=== PATIENT | male | born 1945 | race African-American/Black ===

== ENCOUNTER 2016-10-09 08:46 | Emergency (ER) | payer BC ==
[2016-10-09] MEDS ORDERED: ASPIRIN 81 MG CHEWABLE TABLETS PO ONE (08:53)
--- NOTE | 2016-10-09 08:53 | PDOC ---
History of Present Illness <Jeffery Mcelroy - Last Filed: 10/09/16 10:23> - General History Source: Patient, EMS, Old Records Exam Limitations: No Limitations - History of Present Illness Initial Comments: 10/09/16 10:40 The patient is a 70 year old male with past medical history of hypertension, CAD , ischemic cardiomyopathy (s/p CABG), paroxysmal afib (on Eliquis), s/p ICD last Thursday, chronic systolic CHF, hx of non sustained ventricular tachycardia , ESRD (on hemodialysis TTS), who presents to the ED with complaints of chest pain that began while at dialysis this morning. The patient states that since its onset, the patient has been experiencing constant chest pain which spans across his whole chest and is accompanied by intermittent palpitations in which he characterizes them as irregular beats. Upon arrival to dialysis center, EMS noted several episodes of nonsustained wide complex tachycardia. The patient denies any recent illness, fevers, or chills. He denies shortness of breath. He denies any nausea, vomiting, diarrhea. He denies any urinary symptoms. PCP: Oscar Sullivan Card: Jerrell Kramer <Roxi Hi - Last Filed: 10/09/16 10:52> - General Stated Complaint: CHEST PAIN Time Seen by Provider: 10/09/16 08:52 Past History - Past Medical History Anemia: No Asthma: No Cancer: No Cardiac Disorders: Yes ([place]) CVA: No COPD: No CHF: No Dementia: No Diabetes: Yes Dialysis: Yes (,,) GI Disorders: No Disorders: No HTN: Yes Hypercholesterolemia: Yes Liver Disease: No Seizures: No Thyroid Disease: No - Surgical History Abdominal Surgery: No Appendectomy: No Cardiac Surgery: Yes (STENT) Cholecystectomy: No Lung Surgery: No Neurologic Surgery: No Orthopedic Surgery: No - Immunization History Immunization Up to Date: No - Psycho/Social/Smoking Cessation Hx Anxiety: No Suicidal Ideation: No Smoking History: Unknown if ever smoked Have you smoked in the past 12 months: No Hx Alcohol Use: No Drug/Substance Use Hx: No Substance Use Type: None Hx Substance Use Treatment: No <Jeffery Mcelroy - Last Filed: 10/09/16 10:23> <Roxi Hi - Last Filed: 10/09/16 10:52> - Past Medical History Allergies/Adverse Reactions: Allergies Allergy/AdvReac Type Severity Reaction Status Date / Time No Known Drug Allergies Allergy Verified 04/05/15 16:45 Home Medications: Ambulatory Orders Amlodipine Besylate [Norvasc -] 5 mg PO DAILY 03/21/13 Aspirin 81 mg PO DAILY 03/21/13 Insulin (Levemir) [Levemir Flexpen -] 40 units SQ BID 06/13/14 Isosorbide Mononitrate [Imdur] 60 mg PO DAILY 06/13/14 Metoprolol Succinate [Toprol XL -] 25 mg PO BID 06/13/14 Atorvastatin Ca [Lipitor] 40 mg PO HS #30 tablet 06/16/14 Cholecalciferol (Vitamin D3) [Vitamin D3 -] 1,000 unit PO DAILY 09/16/16 Furosemide [Lasix -] 80 mg PO BID 09/16/16 Magnesium Oxide [Mag-Ox -] 400 mg PO DAILY 09/16/16 Review of Systems - Review of Systems Able to Perform ROS?: Yes Comments:: 10/09/16 10:40 CONSTITUTIONAL: Absent: fever, chills, diaphoresis, generalized weakness, malaise, loss of appetite HEENT: Absent: rhinorrhea, nasal congestion, throat pain, throat swelling, difficulty swallowing, mouth swelling, ear pain, eye pain, visual Changes CARDIOVASCULAR: Present: chest pain, palpitations Absent: syncope, lightheadedness, peripheral edema RESPIRATORY: Absent: cough, shortness of breath, dyspnea with exertion, orthopnea, wheezing, stridor, hemoptysis GASTROINTESTINAL: Absent: abdominal pain, abdominal distension, nausea, vomiting, diarrhea, constipation, melena, hematochezia GENITOURINARY: Absent: dysuria, frequency, urgency, hesitancy, hematuria, flank pain, genital pain MUSCULOSKELETAL: Absent: myalgia, arthralgia, joint swelling SKIN: Absent: rash, itching, pallor HEMATOLOGIC/IMMUNOLOGIC: Absent: easy bleeding, easy bruising, lymphadenopathy, frequent infections ENDOCRINE: Absent: unexplained weight gain, unexplained weight loss, heat intolerance, cold intolerance NEUROLOGIC: Absent: headache, focal weakness or paresthesias, dizziness, unsteady gait, seizure, mental status changes, bladder or bowel incontinence PSYCHIATRIC: Absent: anxiety, depression, suicidal or homicidal ideation, hallucinations. All Other Systems: Reviewed and Negative <Roxi Hi - Last Filed: 10/09/16 10:52> *Physical Exam - Vital Signs Last Vital Signs Temp Pulse Resp BP Pulse Ox 98.8 F 101 H 18 140/116 100 10/09/16 08:55 10/09/16 08:55 10/09/16 08:55 10/09/16 08:55 10/09/16 08:55 - Physical Exam Comments: 10/09/16 10:41 GENERAL: Well developed, well nourished. Awake and alert. No acute distress. HEENT: Normocephalic, atraumatic. PERRLA, EOMI. No conjunctival pallor. Sclera are non- icteric. Moist mucous membranes. Oropharynx is clear. NECK: Supple. Full ROM. No JVD. Carotid pulses 2+ and symmetric, without bruits. No thyromegaly. No lymphadenopathy. CARDIOVASCULAR: Irregularly irregular and tachycardic. No murmurs, rubs, or gallops. Distal pulses are 2+ and symmetric. PULMONARY: No evidence of respiratory distress. Lungs clear to auscultation bilaterally. No wheezing, rales or rhonchi. ABDOMINAL: Soft. Non-tender. Non-distended. No rebound or guarding. No organomegaly. Normoactive bowel sounds. MUSCULOSKELETAL Normal range of motion at all joints. No bony deformities or tenderness. No CVA tenderness. EXTREMITIES: No cyanosis. No clubbing. No edema. No calf tenderness. SKIN: Warm and dry. Normal capillary refill. No rashes. No jaundice. NEUROLOGICAL: Alert, awake, appropriate. Cranial nerves 2-12 intact. No deficits to light touch and temperature in face, upper extremities and lower extremities. No motor deficits in the in face, upper extremities and lower extremities. Normoreflexic in the upper and lower extremities. Normal speech. Toes are down-going bilaterally. PSYCHIATRIC: Cooperative. Good eye contact. Appropriate mood and affect. <Roxi Hi - Last Filed: 10/09/16 10:52> ED Treatment Course - LABORATORY CBC & Chemistry Diagram: 10/09/16 09:13 10/09/16 10:12 <Jeffery Mcelroy - Last Filed: 10/09/16 10:23> - LABORATORY CBC & Chemistry Diagram: 10/09/16 10:12 10/09/16 10:12 - ADDITIONAL ORDERS Additional order review: 10/09/16 10/09/16 10:12 09:13 RBC 2.90 L Cancelled MCV 93.7 Cancelled MCHC 34.0 Cancelled RDW 15.5 Cancelled MPV 9.5 Cancelled Neutrophils % 75.7 Cancelled Lymphocytes % 15.7 Cancelled Monocytes % 5.8 Cancelled Eosinophils % 1.9 Cancelled Basophils % 0.9 Cancelled - RADIOLOGY Radiograph Interpretation: 10/09/16 10:46 Chest X-ray as reviewed by reports large heart. Previous OHS. Double lead pacemaker. <Roxi Hi - Last Filed: 10/09/16 10:52> Medical Decision Making - Critical Care Time Total Critical Care Time (minutes): 55 Critical Care Statement: The care of this patient involved high complexity decision making to prevent further life threatening deterioration of the patient 's condition and/or to evalute & treat vital organ system(s) failure or risk of failure. - Medical Decision Making 10/09/16 08:55 The patient is hemodynamically stable, and in no acute distress He is currently having chest pain On the monitor, he has a wide-complex tachycardia, that appears regular, and appears nonsustained Differential includes atrial fibrillation with aberrant conduction versus nonsustained ventricular tachycardia Will obtain stat EKG 10/09/16 09:03 EKG noted: I suspect nonsustained ventricular tachycardia Ventricular rate approximately 100 Right axis deviation Nurses are obtaining IV access He got 2 baby aspirin in the field Will administer another 2 baby aspirin Will administer 150 mg of IV amiodarone over 20 minutes Paging cardiology stat 10/09/16 09:12 IV access has been obtained 150 mg of IV amiodarone is hanging Cardiology is at the bedside and agrees with the plan of care 10/09/16 09:28 Pt accepted to [facility] (Dr. Chapin accepting) 10/09/16 09:30 Chest x-ray emergency Department interpretation: Cardiomegaly Some slight increase in his interstitial markings since last chest x-ray Nurses were unable to obtain labs I am attempting now He remains hemodynamically stable 150 mg bolus of amiodarone has almost completely infused 10/09/16 09:45 I obtained labs via right femoral vein cannulation, on first attempt I held 5 minutes of pressure afterwards Posterior tibial and dorsal pedal pulses were intact both before and after the procedure I have already initiated code red, stat EMS transfer Awaiting EMS arrival 10/09/16 09:50 EMSs arrived Amiodarone drip is hanging Looking at the monitor, it is difficult to tell whether or not he is in atrial fibrillation or having nonsustained V. tach in couplets, triplets, and quartets He is stable for transfer Clinical impression: Chest pain Suspected nonsustained ventricular tachycardia 10/09/16 10:23 The patient is departing with EMS He is hemodynamically stable He is complaining of "very mild" chest pressure Will administer 2 mg of morphine IV <Jeffery Mcelroy - Last Filed: 10/09/16 10:23> - Medical Decision Making 10/09/16 09:30 Call placed to [facility] transfer center at . Transfer was set up and patient was transferred to CCU. <Roxi Hi - Last Filed: 10/09/16 10:52> *DC/Admit/Observation/Transfer - Discharge Dispostion Admit: No - Transfer to Acute Care Facility Receiving Facility: [facility] Accepting Physician:: Dari <Jeffery Mcelroy - Last Filed: 10/09/16 10:23> - Attestations Scribe Attestion: 10/09/16 10:43 Documentation prepared by Roxi Hi, acting as medical biller coder for Jeffery Mcelroy MD/DO. <Roxi Hi - Last Filed: 10/09/16 10:52> Diagnosis at time of Disposition: V tach, Chest pain - Discharge Dispostion Disposition: TRANSFER ACUTE CARE/OTHER HOSP - Referrals Referrals: Oscar Sullivan MD [Primary Care Provider] -
[2016-10-09] MEDS ORDERED: ASPIRIN 81 MG CHEWABLE TABLETS ONE (08:57)
[2016-10-09] MEDS ORDERED: AMIODARONE HCL 150 MG/3 ML VIAL IVPUSH ONE (09:04)
[2016-10-09] MEDS ORDERED: AMIODARONE HCL INJECTION 150 MG in DEXTROSE 5%-WATER - 97 ML IVPB ONE (09:04)
[2016-10-09] MEDS ORDERED: AMIODARONE HCL 150 MG/3 ML VIAL ONE ×2 (09:08→09:49)
[2016-10-09] MEDS ORDERED: AMIODARONE HCL INJECTION 450 MG in DEXTROSE 5%-WATER - 241 ML IVPB SCH (09:15)
[2016-10-09 09:35] VITALS: BMI 34.9
--- NOTE | 2016-10-09 09:38 | PN ---
Progress Note (short form) - Note Progress Note: Cardiology Consult Dictated 70M w ESRD, ICM, ICD, PAF on Eliquis, recent admission for VT thought to be due to bradycardia s/p ICD upgrade to include atrial lead and adjustment of lower rate limit now presents to ER from HD w/ chest pain, palps, nausea and found to be having either AF w/ aberrancy with pauses and intermittent pacing vs. NSVT and intermittent pacing. Hemodynamically stable. REC: Amio 150mg IV x1 Stat Labs to assess electrolytes. Have contacted EP and interventional cardiology for transfer to [facility] CCU for further EP evaluation and likely cath- patient had stress test several months ago with moderate magno-infarct ischemia, refused cath at that time. Plan d/w patient and daughters. They agree for tx. Discussed w/ ER MD Dr. Mcelroy.
[2016-10-09] MEDS ORDERED: morphine CARPU-JECT 4 MG/1 ML DISP.SYRIN IVPUSH ONE (10:21)
[2016-10-09] MEDS ORDERED: morphine CARPU-JECT 2 MG/1 ML DISP.SYRIN ONE (10:22)
[2016-10-09 10:31] LABS: BASOPHIL 0.9 % (0-2.0); EOSINOPHIL 1.9 % (0-4.5); MCH 31.8 pg (25.7-33.7); MEAN CELL VOLUME 93.7 fl (80-96); MEAN PLT VOLUME 9.5 fl (7.5-11.1); NEUTROPHILS 75.7 % (42.8-82.8); PLATELET COUNT 86 K/MM3 (134-434); RDW 15.5 % (11.9-15.9); WHITE BLOOD COUNT 6.3 K/mm3 (4.0-10.0)
--- NOTE | 2016-10-09 10:46 | CONS ---
DATE OF CONSULTATION: 10/09/2016 REQUESTING PHYSICIAN: Jeffery Mcelroy MD CHIEF COMPLAINT: Cardiac arrhythmia. HISTORY: A 70-year-old male with paroxysmal atrial fibrillation on Eliquis, ischemic cardiomyopathy status post CABG, ICD, end-stage renal disease on dialysis, recent admission here for VT with multiple shocks felt to be due to bradycardia recently transferred to [facility] where he was evaluated by electrophysiology who added an atrial lead and increased the lower rate limit on his device with resolution of VT. The patient now presents to the emergency room from dialysis with palpitations, chest discomfort, and nausea. In the ER, he was found to be in a cardiac arrhythmia, which may be atrial fibrillation with aberrant conduction, pauses, and intermittent ventricular pacing versus short salvos of ventricular tachycardia with pauses and V pacing. He is hemodynamically stable and chest pain free at this time with no nausea. I have discussed with Dr. Mcelroy and with EP at [facility] treatment with amiodarone 150 mg IV x1 dose now. PAST MEDICAL HISTORY: As above. ALLERGIES: He has no known drug allergies. HOME MEDICATIONS: Include: 1. Toprol XL 25 b.i.d. 2. Magnesium 400 mg daily. 3. Imdur 60 mg daily, which was held on dialysis days. 4. Levemir 40 units b.i.d. 5. Lasix 80 mg daily. 6. Vitamin D3. 7. Lipitor 40 nightly, 8. Norvasc 5 mg daily, which was being held on dialysis days. 9. Aspirin 81 mg daily. FAMILY HISTORY: Noncontributory. SOCIAL HISTORY: The patient is a nonsmoker. PHYSICAL EXAMINATION: General: He is alert and oriented. Speaking in full sentences. He denies chest pain. Vital Signs: His blood pressure is in the 70s, irregular, blood pressure cycled at the bedside was 115/70, O2 saturation 98% on 2 L nasal cannula. Neck: He has no JVD. Heart: Irregular with no new murmurs. Chest: Clear bilaterally with no wheezing, rales, or rhonchi. Abdomen: Obese but soft and nontender. No rebound or guarding. Extremities: Warm with no edema. EKGs and rhythm strips were reviewed. It is difficult to differentiate whether he is having atrial fibrillation with aberrant conduction pauses with intermittent ventricular pacing versus short salvos of nonsustained ventricular tachycardia followed by V pacing. The strips were photographed and sent to EP for further analysis. IMPRESSION: A 70-year-old male with ischemic cardiomyopathy status post implantable cardioverter-defibrillator, history of coronary artery disease, end-stage renal disease on dialysis, paroxysmal atrial fibrillation on Eliquis, recent admission for recurrent ventricular tachycardia with multiple implantable cardioverter-defibrillator shocks thought to be due to bradycardia with implantable cardioverter-defibrillator upgrade and adjustment of lower rate limit now presents again with palpitations and found to be the above rhythm. PLAN: 1. Amiodarone 150 mg IV x1 dose now. 2. Plan for transfer to CCU at [facility] for further EP evaluation and possible cardiac catheterization. It should be noted that the patient had an abnormal stress test several months ago showing infarct with moderate magno-infarct ischemia at which time a cardiac catheterization was recommended but he refused. After the most recent admission, the ventricular tachycardia was thought to be due to bradycardia and secondary to the way his device had been set. VT had resolved after adjustment of the device with the addition of an atrial lead and adjustment of a lower rate limit. Cardiac catheterization was deferred at that time. The patient saw me in the office last week, and they reported that he had been hypotensive at dialysis at which time Norvasc and Imdur were instructed to be held on dialysis days. Since he had some chest discomfort during dialysis, cardiac catheterization was again discussed, and the patient was supposed to have an outpatient cardiac catheterization in the upcoming weeks. Given current arrhythmia, transfer to CCU is appropriate with evaluation by EP and by Interventional Cardiology. The patient and daughters agree with plan. Plan discussed with ER attending, Dr. Mcelroy. The patient has been accepted for transfer to [facility]. Dr. Jeffery Chapin is the accepting physician. Thank you for the consultation. LAUREN AN M.D. [id number]
[2016-10-09 10:52] LABS: INR 1.36 (0.82-1.09); PROTHROMBIN TIME (PATIENT) 15.1 SEC (9.98-11.88)
[2016-10-09 10:55] LABS: MAGNESIUM 1.9 mg/dL (1.8-2.4)
[2016-10-09 10:56] LABS: ALBUMIN 3.9 g/dl (3.4-5.0); CALCIUM 8.5 mg/dL (8.5-10.1); MAGNESIUM 1.9 mg/dL (1.8-2.4)
[2016-10-09 11:13] LABS: BILIRUBIN,TOTAL 0.5 mg/dL (0.2-1.0)
[2016-10-09 11:21] LABS: CREATININE 9.5 mg/dL (0.7-1.3); TROPONIN I 1.49 ng/ml (0.00-0.05)
[2016-10-09 11:22] VITALS: TEMP 98.1
[2016-10-09 11:23] VITALS: BP 113/61; PULSE 98
--- NOTE | 2016-10-09 12:25 | EKG ---
Test Reason : Blood Pressure : / mmHG Vent. Rate : 106 BPM Atrial Rate : 000 BPM P-R Int : 000 ms QRS Dur : 122 ms QT Int : 514 ms P-R-T Axes : 000 045 162 degrees QTc Int : 682 ms ATRIAL FIBRILLATION WITH RAPID VENTRICULAR RESPONSE WITH OCCASIONAL ventricular-paced complexes AND WITH PREMATURE VENTRICULAR OR ABERRANTLY CONDUCTED COMPLEXES POSSIBLE INFERIOR INFARCT , AGE UNDETERMINED ABNORMAL ECG WHEN COMPARED WITH ECG OF 19-SEP-2016 02:29, ELECTRONIC VENTRICULAR PACEMAKER HAS REPLACED SINUS RHYTHM Confirmed by DEMETRIUS GRANADOS MD ([id number]) on 10/09/2016 12:24:40 PM Referred By: Confirmed By:DEMETRIUS GRANADOS MD
[2016-10-09 12:41] LABS: TROPONIN I 1.51 ng/ml (0.00-0.05)
== END 2016-10-09 10:25 | disposition short-term general hospital (02) ==
LOC: JER 08:46
PROC: 3E033RZ Introduction of Antiarrhythmic into Peripheral Vein, Percutaneous Approach (ICD-10-PCS; principal; 2016-10-09)
PROC: 3E033NZ Introduction of Analgesics, Hypnotics, Sedatives into Peripheral Vein, Percutaneous Approach (ICD-10-PCS; 2016-10-09)
DX: I47.2 Ventricular tachycardia (principal); R07.89 Other chest pain; I48.0 Paroxysmal atrial fibrillation; Z79.01 Long term (current) use of anticoagulants; I25.10 Atherosclerotic heart disease of native coronary artery without angina pectoris; I13.2 Hypertensive heart and chronic kidney disease with heart failure and with stage 5 chronic kidney disease, or end stage renal disease; N18.6 End stage renal disease; I50.22 Chronic systolic (congestive) heart failure; Z99.2 Dependence on renal dialysis; Z95.1 Presence of aortocoronary bypass graft
CPT/HCPCS: 36415; 71010-TC; 80053; 82550; 82553; 83735; 84484; 85025; 85610; 93005; 93010; 99285-25

== ENCOUNTER 2016-11-04 10:14 | Observation (INO) | payer BC ==
[2016-11-04 10:38] VITALS: BMI 33.0
--- NOTE | 2016-11-04 11:53 | PDOC ---
History of Present Illness - General Chief Complaint: Chest Pain Stated Complaint: CHEST PAIN Time Seen by Provider: 11/04/16 10:17 History Source: Patient Exam Limitations: No Limitations - History of Present Illness Initial Comments: 11/04/16 11:55 70-year-old male with history of end-stage renal disease, CAD, pacemaker, diabetes and recent stent placement presents with chest tightness that began after completing dialysis. Patient does state intermittent shortness of breath over the past week without aggravating factors. Patient also states his amiodarone was decreased from 400 mg at 200 mg on the fifth by Dr. Kramer. Patient denies worsening lower extremity edema, abdominal pain, palpitations, dizziness, nausea, fever or chills. Presenting Symptoms: Chest Pain, Short of Breath Timing/Duration: reports: resolved prior to arrival Severity/Quality: reports: moderate, pressure Location: reports: substernal Chest Pain Radiation: reports: no radiation Activities at Onset: reports: exertion Prior Chest Pain/Cardiac Workup: reports: Cardiac Cath (with stent), Stress Test Nitro Today/Relief: Yes: no nitro taken today Aspirin Received prior to arrival (Core Measure): Yes: no aspirin today Associated Symptoms: Yes: Chest Pain/pressure, Shortness of Breath Past History - Past Medical History Allergies/Adverse Reactions: Allergies Allergy/AdvReac Type Severity Reaction Status Date / Time No Known Drug Allergies Allergy Verified 11/04/16 10:29 Home Medications: Ambulatory Orders Amiodarone HCl [Cordarone -] 200 mg PO DAILY 11/04/16 Amlodipine Besylate [Norvasc -] 5 mg PO DAILY 11/04/16 Atorvastatin Ca [Lipitor] 40 mg PO HS 11/04/16 Clopidogrel Bisulfate [Plavix -] 75 mg PO DAILY 11/04/16 Furosemide [Lasix -] 40 mg PO BID 11/04/16 Insulin (Levemir) [Levemir Flexpen -] 50 units SQ BID 11/04/16 Isosorbide Mononitrate [Imdur -] 60 mg PO DAILY 11/04/16 Losartan 50Mg/Hctz 12.5MG [Hyzaar -] 1 tab PO DAILY 11/04/16 Metoprolol Succinate [Toprol Xl] 75 mg PO DAILY 11/04/16 Pantoprazole Sodium [Protonix -] 40 mg PO DAILY 11/04/16 Anemia: No Asthma: No Cancer: No Cardiac Disorders: Yes ([place]) CVA: No COPD: No CHF: No Dementia: No Diabetes: Yes Dialysis: Yes (,,[place]) GI Disorders: No Disorders: No HTN: Yes Hypercholesterolemia: Yes Liver Disease: No Seizures: No Thyroid Disease: No - Surgical History Abdominal Surgery: No Appendectomy: No Cardiac Surgery: Yes (STENT) Cholecystectomy: No Lung Surgery: No Neurologic Surgery: No Orthopedic Surgery: No - Immunization History Immunization Up to Date: No - Psycho/Social/Smoking Cessation Hx Anxiety: No Suicidal Ideation: No Smoking History: Unknown if ever smoked Have you smoked in the past 12 months: No Information on smoking cessation initiated: No Hx Alcohol Use: No Drug/Substance Use Hx: No Substance Use Type: None Hx Substance Use Treatment: No Patient Lives Alone: No Lives with/in: spouse/SO Cardiac Specific PMH - Complaint Specific PMHX Pacemaker: Yes Review of Systems - Review of Systems Able to Perform ROS?: Yes Constitutional: No: Symptoms Reported HEENTM: No: Symptoms Reported Respiratory: Yes: Shortness of Breath. No: Cough Cardiac (ROS): Yes: Chest Pain. No: Lightheadedness, Palpitations, Syncope ABD/GI: No: Symptoms Reported : No: Symptoms Reported Musculoskeletal: No: Symptoms Reported Integumentary: No: Symptoms Reported Neurological: No: Symptoms reported Hematologic/Lymphatic: No: Symptoms Reported *Physical Exam - Vital Signs Last Vital Signs Temp Pulse Resp BP Pulse Ox 98.0 F 67 20 141/67 100 11/04/16 10:31 11/04/16 10:31 11/04/16 10:31 11/04/16 10:11/04/16 10:35 - Physical Exam General Appearance: Yes: Nourished, Appropriately Dressed. No: Apparent Distress HEENT: positive: EOMI, FLACA, TMs Normal, Pharynx Normal, Pale Conjunctivae ( mild) Neck: positive: Supple Respiratory/Chest: positive: Lungs Clear, Normal Breath Sounds. negative: Respiratory Distress, Accessory Muscle Use Cardiovascular: positive: Regular Rhythm, Regular Rate. negative: Murmur Gastrointestinal/Abdominal: positive: Soft. negative: Tenderness Musculoskeletal: negative: CVA Tenderness Extremity: positive: Normal Capillary Refill, Pedal Edema (1+) Integumentary: positive: Normal Color, Dry, Warm Neurologic: positive: Normal Mood/Affect Heart Score/ECG Review - ECG Intrepretation Rhythm: Regular Rhythm (atrial paced at 79 with prolonged AV conduction and dual paced complexes.) ED Treatment Course - LABORATORY CBC & Chemistry Diagram: 11/04/16 12:20 11/04/16 13:00 - ADDITIONAL ORDERS Additional order review: Laboratory Results 11/04/16 11/04/16 11/04/16 13:00 13:00 11:05 INR 1.80 H D Sodium 141 Potassium 3.2 L Chloride 98 Carbon Dioxide 33 H D Anion Gap 10 BUN 21 H D Creatinine 5.9 H D Creat Clearance w eGFR 9.50 Random Glucose 96 D Calcium 8.9 Magnesium 2.0 Total Bilirubin 0.7 D AST 22 D ALT 12 D Alkaline Phosphatase 65 Creatine Kinase 308 D Troponin I 0.14 H D B-Natriuretic Peptide 33196.81 H Total Protein 7.3 Albumin 3.8 Blood Type B NEGATIVE Antibody Screen Negative 11/04/16 12:20 RBC 2.89 L MCV 93.2 MCHC 33.3 RDW 15.6 MPV 8.8 Neutrophils % 69.7 Lymphocytes % 17.6 Monocytes % 8.4 Eosinophils % 3.5 D Basophils % 0.8 - RADIOLOGY Radiology Studies Ordered: Category Date Time Status CHEST X-RAY PORTABLE* [RAD] Stat Radiology 11/04/16 11:06 Completed Medical Decision Making - Medical Decision Making 11/04/16 11:57 Patient with extensive cardiac history and recent stent placement approximately 10 weeks ago and decrease in his amiodarone last week. Patient presents with resolved chest pain that occurred while in dialysis but resolved while in route to the ER. Patient also complains of intermittent shortness of breath for the past week without aggravating factors. Patient denies orthopnea. Patient concerning for acute coronary syndrome versus electrolyte imbalance versus anemia versus pneumonia. Patient ordered for cardiac workup. patient is currently asymptomatic.. 11/04/16 13:20 . Patient remains symptomatic. blood collected by me performing an arterial stick to his left radial artery. Case discussed with Dr. Majano who accepted patient to telemetry inpatient. Awaiting callback from Dr. Kramer. 11/04/16 13:44 chest x-ray negative. Chemistry pending 11/04/16 13:56 Laboratory Tests 11/04/16 13:00 Sodium 141 Potassium 3.2 L Chloride 98 Carbon Dioxide 33 H D BUN 21 H D Creatinine 5.9 H D Magnesium 2.0 AST 22 D ALT 12 D Alkaline Phosphatase Pending Creatine Kinase Pending Troponin I Pending B-Natriuretic Peptide Pending 11/04/16 14:11 Laboratory Tests 06/13/14 10/09/16 10/09/16 12:50 10:12 10:12 Troponin I 1.49 H* D 1.51 H* B-Natriuretic Peptide 36735.77 H 11/04/16 13:00 Troponin I 0.14 H D B-Natriuretic Peptide 06499.81 H 11/04/16 15:[address] Kramer who feels patient would benefit from telemetry observation and will consult shortly on patient. Patient remained asymptomatic with normal vital signs here *DC/Admit/Observation/Transfer Diagnosis at time of Disposition: Chest pain Qualifiers: Chest pain type: unspecified Qualified Code(s): R07.9 - Chest pain, unspecified - Discharge Dispostion Admit: Yes Decision to Admit order Date/Time: Decision to Admit Order Category Date Time Status Decision to Admit to Hospital Routine Admission 11/04/16 13:22 Active
[2016-11-04 12:31] LABS: BASOPHIL 0.8 % (0-2.0); EOSINOPHIL 3.5 % (0-4.5); MCHC 33.3 g/dl (32.0-35.9); MEAN CELL VOLUME 93.2 fl (80-96); MEAN PLT VOLUME 8.8 fl (7.5-11.1); NEUTROPHILS 69.7 % (42.8-82.8); PLATELET COUNT 114 K/MM3 (134-434); RDW 15.6 % (11.9-15.9); WHITE BLOOD COUNT 5.1 K/mm3 (4.0-10.0)
[2016-11-04 13:38] LABS: ALBUMIN 3.8 g/dl (3.4-5.0); BILIRUBIN,TOTAL 0.7 mg/dL (0.2-1.0); CALCIUM 8.9 mg/dL (8.5-10.1); CREATININE 5.9 mg/dL (0.7-1.3); TOT PROT 7.3 g/dl (6.4-8.2)
[2016-11-04 13:54] LABS: TROPONIN I 0.14 ng/ml (0.00-0.05)
[2016-11-04 14:00] LABS: INR 1.8 (0.82-1.09)
--- NOTE | 2016-11-04 15:16 | EKG ---
Test Reason : Blood Pressure : / mmHG Vent. Rate : 079 BPM Atrial Rate : 077 BPM P-R Int : 268 ms QRS Dur : 130 ms QT Int : 450 ms P-R-T Axes : 098 050 180 degrees QTc Int : 516 ms AV SEQUENTIAL OR DUAL CHAMBER ELECTRONIC PACEMAKER T WAVE ABNORMALITY, CONSIDER INFERIOR ISCHEMIA T WAVE ABNORMALITY, CONSIDER ANTEROLATERAL ISCHEMIA ABNORMAL ECG WHEN COMPARED WITH ECG OF 09-OCT-2016 08:57, VENT. RATE HAS DECREASED BY 27 BPM CLINICAL CORRELATION IS RECOMMENDED Confirmed by CEE ROOT MD ([id number]) on 11/04/2016 3:15:47 PM Referred By: Confirmed By:CEE ROOT MD
--- NOTE | 2016-11-04 17:15 | PN ---
Progress Note (short form) - Note Progress Note: Cardiology Consult Dictated 1.Ischemic CM s/p CABG, recent CAROLYNN [place] LAD and SVG to LAD -totally occluded SVG to LCX; totally occluded [place] RCA 2. Recent ICD upgrade to dual chamber device 3. PAF 4. History of bradycardia induced VT 5. ESRD on HD Admitted due to episode atypical CP on HD. He states he has been having chest pain at HD "every time" for the last 3 weeks. REC: His pain appears to be atypical, but may be anginal triggered by fluid shifts and swings in BP during HD (he has extensive [place] CAD and total occlusion of RCA and SVG to LCx). -Would observe on tele overnight -Cycle cardiac enzymes -Attempt to slow rate of HD if possible, avoid hypotension. -Continue home meds
[2016-11-04 19:13] LABS: TROPONIN I 0.14 ng/ml (0.00-0.05)
--- NOTE | 2016-11-04 20:12 | CONS ---
DATE OF CONSULTATION: 11/04/2016 REASON FOR CONSULTATION: The consultation is requested by Dr. Majano for chest pain. HISTORY: The patient is a 70-year-old male, well-known to our service from previous admissions and from office follow up. His past medical history includes coronary disease, status post CABG; ischemic cardiomyopathy, status post ICD; recent admission here with chest pain, non-STEMI, transferred to [facility] where he underwent coronary catheterization and drug-eluding stents to his [place] LAD as well as his SVG to LAD. Patient has chronic [place] CAD as well as a totally occluded SVG to left circumflex and a totally occluded [place] right coronary artery. He also recently underwent ICD upgrade to a dual-chamber device after he sustained bradycardia-induced ventricular tachycardia. He has paroxysmal atrial fibrillation and is on Eliquis. He also has end-stage renal disease on hemodialysis and a remote history of CVA. The patient was on dialysis today and began experiencing substernal chest pressure. He described it as across his chest, "in the bones." Denied shortness of breath above baseline. Denied palpations. Denied PND. Denied orthopnea. Patient states he has been having chest pain on dialysis for the last 4 weeks, states it did not get better after the recent intervention. PAST MEDICAL HISTORY: As above. ALLERGIES: No known drug allergies. HOME MEDICATIONS: 1. Amiodarone taper, which ended on November 01. 2. Eliquis 5 mg b.i.d. 3. Aspirin 81 mg daily. 4. Lipitor 80 mg at bedtime. 5. Plavix 75 mg daily. 6. Enalapril 2.5 mg daily. 7. Toprol XL 75 mg daily. FAMILY HISTORY: Noncontributory. SOCIAL HISTORY: Patient denies active tobacco use. Denies illicit drugs. PHYSICAL EXAMINATION: Vital signs: Afebrile, temperature 98.0 Fahrenheit, pulse 90. EKG showed dual-chamber pacing with underlying atrial fibrillation. Blood pressure 132/72. O2 saturations are 98% on 2 liters. Heart: S1, S2 regular. No murmurs. Chest: Clear. Abdomen: Soft, nontender. Extremities: No edema. IMAGING: Chest x-ray showed no infiltrates or effusions. LABORATORY: White count 5.1, hematocrit 27, platelets of 114, potassium 3.2, creatinine 5.9, CK 308, troponin 0.14, BNP 42,346. ASSESSMENT: A 70-year-old male with coronary disease, status post coronary artery disease; ischemic cardiomyopathy, status post implantable converter defibrillator with recent upgrade; paroxysmal atrial fibrillation; recent non-STEMI with drug-eluding stents to the [place] LAD and SVG to LAD; chronic totally occluded RCA and saphenous vein graft to left circumflex, who now presents with atypical chest pain at hemodialysis. Patient's description of the pain is atypical; however, given his extensive coronary disease, he may be having some form of angina due to fluid shift and blood pressure shift at hemodialysis. PLAN: 1. Monitoring on telemetry overnight for serial cardiac enzymes. 2. Echocardiogram to rule out pericardial effusion after the recent pacemaker intervention. 3. Attempt to dialyze again while hospitalized. We will try to remove fluid slowly to avoid fluid shifts. He may benefit from the addition of isosorbide mononitrate if blood pressure allows. Holley [id number]
[2016-11-04] MEDS: APIXABAN 5 MG TABLET PO SCH (21:48)
[2016-11-04] MEDS: ATORVASTATIN CA 80 MG TABLET (FP) PO SCH (21:48)
[2016-11-04] MEDS: INSULIN DETEMIR 100 UNITS/ML MDV SQ SCH (21:48)
[2016-11-05 01:15] LABS: TROPONIN I 0.13 ng/ml (0.00-0.05)
[2016-11-05 07:50] LABS: EOSINOPHIL 3.4 % (0-4.5); MCH 31.7 pg (25.7-33.7); MCHC 34.2 g/dl (32.0-35.9); MEAN CELL VOLUME 92.8 fl (80-96); MEAN PLT VOLUME 8.9 fl (7.5-11.1); NEUTROPHILS 73.1 % (42.8-82.8); PLATELET COUNT 108 K/MM3 (134-434); RDW 15.3 % (11.9-15.9)
[2016-11-05 08:36] LABS: ALBUMIN 3.4 g/dl (3.4-5.0); CALCIUM 8.7 mg/dL (8.5-10.1)
[2016-11-05 08:43] LABS: BILIRUBIN,TOTAL 0.6 mg/dL (0.2-1.0); TOT PROT 6.4 g/dl (6.4-8.2)
[2016-11-05 08:55] LABS: CREATININE 7.9 mg/dL (0.7-1.3)
--- NOTE | 2016-11-05 09:08 | PN ---
Progress Note, Physician Chief Complaint: no chest pain Having echo TnI trend is flat TELE: paced, no sig. V arrhythmias History of Present Illness: drop in H/H noted BP controlled - Current Medication List Current Medications: Active Medications Apixaban (Eliquis -) 5 mg PO BID [facility] Last Admin: 11/04/16 21:48 Dose: 5 mg Aspirin (Asa -) 81 mg PO DAILY [facility] Atorvastatin Calcium (Lipitor -) 80 mg PO HS [facility] Last Admin: 11/04/16 21:48 Dose: 80 mg Clopidogrel Bisulfate (Plavix -) 75 mg PO DAILY [facility] Enalapril Maleate (Vasotec -) 2.5 mg PO DAILY [facility] Insulin Detemir (Levemir Vial) 50 units SQ BID [facility] Last Admin: 11/04/16 21:48 Dose: 50 units Metoprolol Succinate 50 mg/ (Metoprolol Succinate 25 mg) 75 mg PO DAILY [facility] - Objective Vital Signs: Vital Signs Temperature 98.9 F 11/05/16 06:00 Pulse Rate 70 11/05/16 06:00 Respiratory Rate 20 11/05/16 06:00 Blood Pressure 133/76 11/05/16 06:00 O2 Sat by Pulse Oximetry (%) 96 11/04/16 21:00 Constitutional: Yes: No Distress Cardiovascular: Yes: Regular Rate and Rhythm Respiratory: Yes: CTA Bilaterally Gastrointestinal: Yes: Soft (non-tender) Edema: No Neurological: Yes: Alert Labs: CBC, BMP 11/05/16 05:45 11/05/16 08:20 INR, PTT INR 1.80 (0.82-1.09) H D 11/04/16 13:00 - ....Imaging EKG: Image Reviewed Assessment/Plan IMP: 1.Ischemic CM s/p CABG, recent CAROLYNN [place] LAD and SVG to LAD -totally occluded SVG to LCX; totally occluded [place] RCA 2. Recent ICD upgrade to dual chamber device 3. PAF 4. History of bradycardia induced VT 5. ESRD on HD 6. Anemia Admitted due to episode atypical CP on HD Cardiac enzymes remain flat. No arrhythmias REC: 1. Follow H/H 2. F/u repeat echo today, r/o pericardial disease 3. Would attempt to dialyze on tele to r/o arrhythmias during HD Avoid hypotension during HD as hypotensive episodes could precipitate angina with his extent of underlying CAD.
[2016-11-05] MEDS ORDERED: METOPROLOL SUCCINATE 50 MG TAB.SR.24H (FP) ONE (09:39)
[2016-11-05] MEDS ORDERED: METOPROLOL SUCCINATE 25 MG TAB.SR.24H (FP) ONE (09:40)
[2016-11-05] MEDS ORDERED: METOPROLOL SUCCINATE 50 MG TAB.SR.24H (FP) PO SCH (10:00)
[2016-11-05] MEDS ORDERED: METOPROLOL SUCCINATE 25 MG TAB.SR.24H (FP) PO SCH (10:00)
[2016-11-05] MEDS: ENALAPRIL MALEATE 2.5 MG TABLET (FP) PO SCH (10:06)
[2016-11-05] MEDS: METOPROLOL SUCCINATE 50 MG, METOPROLOL SUCCINATE 25 MG PO SCH (10:06)
[2016-11-05] MEDS: INSULIN DETEMIR 100 UNITS/ML MDV SQ SCH ×2 (10:07→21:52)
[2016-11-05] MEDS: CLOPIDOGREL BISULFATE 75 MG TABLET (FP) PO SCH (11:46)
[2016-11-05] MEDS: APIXABAN 5 MG TABLET PO SCH ×2 (11:46→21:52)
[2016-11-05] MEDS: ASPIRIN 81 MG CHEWABLE TABLETS PO SCH (11:46)
--- NOTE | 2016-11-05 12:20 | HP ---
Admitting History and Physical - Admission Chief Complaint: Chest pain History of Present Illness: Pt is a 70 y/o male w/ mutiple medical problems including CAD(S/P CABG), paroxysmal afib, HTN, HLD, ischemic cardiomyopathy, diabetes, ESRD(on HD TIW), anemia and sleep apnea. Pt was having dialysis and developed chest pain w/ an intensity of 8/10, nonradiating and not asscoiated with SOB or palpitations. Pt has noticed these same episodes of chest pain during dialysis for at least the past 3-4 weeks. - Past Medical History Cardiovascular: Yes: CAD, CHF, Other (non sustained Ventricular Tachycardia Ischemic cardiomyopathy) Pulmonary: Yes: Sleep Apnea Renal/: Yes: Renal Failure Heme/Onc: Yes: Anemia Endocrine: Yes: Diabetes Mellitus - Past Surgical History Past Surgical History: Yes: AICD, CABG - Smoking History Smoking history: Unknown if ever smoked Have you smoked in the past 12 months: No - Alcohol/Substance Use Hx Alcohol Use: No - Social History ADL: Independent History of Recent Travel: No Home Medications - Allergies Allergies/Adverse Reactions: Allergies Allergy/AdvReac Type Severity Reaction Status Date / Time No Known Drug Allergies Allergy Verified 11/04/16 10:29 - Home Medications Home Medications: Ambulatory Orders Amiodarone HCl [Cordarone -] 200 mg PO DAILY 11/04/16 Amlodipine Besylate [Norvasc -] 5 mg PO DAILY 11/04/16 Atorvastatin Ca [Lipitor] 40 mg PO HS 11/04/16 Clopidogrel Bisulfate [Plavix -] 75 mg PO DAILY 11/04/16 Furosemide [Lasix -] 40 mg PO BID 11/04/16 Insulin (Levemir) [Levemir Flexpen -] 50 units SQ BID 11/04/16 Isosorbide Mononitrate [Imdur -] 60 mg PO DAILY 11/04/16 Losartan 50Mg/Hctz 12.5MG [Hyzaar -] 1 tab PO DAILY 11/04/16 Metoprolol Succinate [Toprol Xl] 75 mg PO DAILY 11/04/16 Pantoprazole Sodium [Protonix -] 40 mg PO DAILY 11/04/16 Family Disease History - Family Disease History Family History: Unremarkable Family Disease History: Diabetes: Brother (pancreatic ), Heart Disease: Sister ( from heart failure ), CA: Father (possible unsure what type ), Brother Review of Systems - Review of Systems Constitutional: reports: Malaise Eyes: reports: No Symptoms HENT: reports: No Symptoms Neck: reports: No Symptoms Cardiovascular: reports: Chest Pain Respiratory: reports: No Symptoms Gastrointestinal: reports: No Symptoms Physical Examination Vital Signs: Vital Signs Temperature 98.9 F 11/05/16 06:00 Pulse Rate 70 11/05/16 06:00 Respiratory Rate 20 11/05/16 06:00 Blood Pressure 133/76 11/05/16 06:00 O2 Sat by Pulse Oximetry (%) 96 11/04/16 21:00 Constitutional: Yes: Well Nourished Neck: Yes: Supple Cardiovascular: Yes: WNL, Regular Rate and Rhythm, Murmur Respiratory: Yes: WNL, Regular, CTA Bilaterally Gastrointestinal: Yes: WNL, Normal Bowel Sounds, Soft, Abdomen, Obese Extremities: Yes: Other ((+) AVG RUE) Edema: No Neurological: Yes: WNL, Alert, Oriented, Other (Nonfocal) Labs: CBC, BMP 11/05/16 05:45 11/05/16 08:20 Problem List - Problems (1) Chest pain Assessment/Plan: Admitted to tele Serial cpk/troponin to r/o ACS Cardio consult ?Due to volume shifts during dialysis Pt has a h/o CAD Cont asa/plavix Code(s): R07.9 - CHEST PAIN, UNSPECIFIED Qualifiers: Chest pain type: unspecified Qualified Code(s): R07.9 - Chest pain, unspecified (2) Anemia in ESRD (end-stage renal disease) Assessment/Plan: Monitor H/H Code(s): N18.6 - END STAGE RENAL DISEASE D63.1 - ANEMIA IN CHRONIC KIDNEY DISEASE (3) CKD (chronic kidney disease) stage V requiring chronic dialysis Assessment/Plan: HD as per renal Code(s): N18.6 - END STAGE RENAL DISEASE Z99.2 - DEPENDENCE ON RENAL DIALYSIS (4) CHF (congestive heart failure) Code(s): I50.9 - HEART FAILURE, UNSPECIFIED Assessment/Plan 1.HTN BP stable Cont metoprolol/vasotec/asa 2.PAfib Cont eliquis 3.HLD Cont lipitor 4.Diabetes Cont levemir and sliding scale w/ coverage
--- NOTE | 2016-11-05 17:18 | CONSULT ---
Consult - text type - Consultation Consultation Note: Renal Consult for ESRD on HD This is a 70 year old Gentleman with PMhx of ESRD no HD (TTS), CAD s/p CABG who presents with chest pain with dialysis that has been worsening over the last several weeks. PMhx: as above AllergiesL NKDA Family Hx: NC Social Hx: No T/A/D ROS: No HOLLAND, confuison, lethargy, chest pain, sob, abd pain, N/V/D. All other pertinent ros negative Home Meds: Home Medications Medication Instructions Recorded Amiodarone HCl [Cordarone -] 200 mg PO DAILY 11/04/16 Amlodipine Besylate [Norvasc -] 5 mg PO DAILY 11/04/16 Atorvastatin Ca [Lipitor] 40 mg PO HS 11/04/16 Clopidogrel Bisulfate [Plavix -] 75 mg PO DAILY 11/04/16 Furosemide [Lasix -] 40 mg PO BID 11/04/16 Insulin (Levemir) [Levemir Flexpen 50 units SQ BID 11/04/16 -] Isosorbide Mononitrate [Imdur -] 60 mg PO DAILY 11/04/16 Losartan 50Mg/Hctz 12.5MG [Hyzaar 1 tab PO DAILY 11/04/16 -] Metoprolol Succinate [Toprol Xl] 75 mg PO DAILY 11/04/16 Pantoprazole Sodium [Protonix -] 40 mg PO DAILY 11/04/16 Vital Signs Temperature 98.8 F 11/06/16 09:55 Pulse Rate 71 11/06/16 10:30 Respiratory Rate 18 11/06/16 10:30 Blood Pressure 172/85 11/06/16 10:30 O2 Sat by Pulse Oximetry (%) 100 11/06/16 05:00 Gen: NAD, awake and alert HEENT: NC/AT, MMM, No JVD CVS: RRR, No M/R lungss: CTA Abd: soft NT/ND Ext: No edema, clubbing or cyanosis Neuro: AAOX3, no focal defects Laboratory Tests 11/05/16 11/05/16 05:45 08:20 WBC 5.0 RBC 2.46 L Hgb 7.8 L D Hct 22.8 L D MCV 92.8 MCHC 34.2 RDW 15.3 Plt Count 108 L Sodium 140 Potassium 3.6 Chloride 100 Carbon Dioxide 32 Anion Gap 8 BUN 31 H D Creatinine 7.9 H* D Creat Clearance w eGFR 6.78 Random Glucose 118 H D Calcium 8.7 Apixaban (Eliquis -) 5 mg PO BID [facility] Last Admin: 11/05/16 21:52 Dose: 5 mg Aspirin (Asa -) 81 mg PO DAILY [facility] Last Admin: 11/05/16 11:46 Dose: 81 mg Atorvastatin Calcium (Lipitor -) 80 mg PO HS [facility] Last Admin: 11/05/16 21:52 Dose: 80 mg Clopidogrel Bisulfate (Plavix -) 75 mg PO DAILY [facility] Last Admin: 11/05/16 11:46 Dose: 75 mg Enalapril Maleate (Vasotec -) 2.5 mg PO DAILY [facility] Last Admin: 11/05/16 10:06 Dose: 2.5 mg Insulin Detemir (Levemir Vial) 50 units SQ BID [facility] Last Admin: 11/05/16 21:52 Dose: 50 units Metoprolol Succinate 50 mg/ (Metoprolol Succinate 25 mg) 75 mg PO DAILY [facility] Last Admin: 11/05/16 10:06 Dose: 75 mg A/p 70 year old Gentleman with PMhx of ESRD no HD (TTS), CAD s/p CABG who presents with chest pain with dialysis that has been worsening over the last several weeks. ESRD on HD chest pain Acute on chronic anemia Hypertension Plan: For HD tomorrow with Tele UF as tolerated Pt with anemia but does not want blood transfusion S/p Long acting MACKENZIE given at dialysis yesterday Will give IV iron with HD Minimize blood draws off dialysis Check iron studies and stool occult blood Cardiology follow up Dario Jensen DO
[2016-11-05] MEDS: ATORVASTATIN CA 80 MG TABLET (FP) PO SCH (21:52)
[2016-11-06] MEDS ORDERED: IRON SUCROSE INJECTION 100 MG in SODIUM CHLORIDE 95 ML IVPB ONE (09:00)
[2016-11-06] MEDS: ENALAPRIL MALEATE 2.5 MG TABLET (FP) PO SCH ×2 (10:00→14:46)
[2016-11-06] MEDS: CLOPIDOGREL BISULFATE 75 MG TABLET (FP) PO SCH ×2 (10:00→14:44)
[2016-11-06] MEDS: APIXABAN 5 MG TABLET PO SCH ×3 (10:00→21:49)
[2016-11-06] MEDS: ASPIRIN 81 MG CHEWABLE TABLETS PO SCH ×2 (10:00→14:43)
[2016-11-06] MEDS: INSULIN DETEMIR 100 UNITS/ML MDV SQ SCH ×2 (10:00→21:49)
[2016-11-06] MEDS: METOPROLOL SUCCINATE 50 MG, METOPROLOL SUCCINATE 25 MG PO SCH ×2 (10:00→14:45)
[2016-11-06] MEDS ORDERED: METOPROLOL SUCCINATE 25 MG TAB.SR.24H (FP) ONE (10:15)
[2016-11-06] MEDS ORDERED: METOPROLOL SUCCINATE 50 MG TAB.SR.24H (FP) ONE (10:15)
[2016-11-06] MEDS ORDERED: PT OWN MED DRAWER 7, Y5N ONE (10:16)
[2016-11-06 10:40] LABS: MCH 31.2 pg (25.7-33.7); MCHC 33.5 g/dl (32.0-35.9); MEAN CELL VOLUME 92.9 fl (80-96); MEAN PLT VOLUME 8.6 fl (7.5-11.1); PLATELET COUNT 124 K/MM3 (134-434); RDW 15.4 % (11.9-15.9); WHITE BLOOD COUNT 5.5 K/mm3 (4.0-10.0)
--- NOTE | 2016-11-06 10:44 | PN ---
Progress Note, Physician History of Present Illness: seen and examined today in [facility]. states he is feeling better today. no overnight events. no new complaints. - Current Medication List Current Medications: Active Medications Apixaban (Eliquis -) 5 mg PO BID [facility] Last Admin: 11/05/16 21:52 Dose: 5 mg Aspirin (Asa -) 81 mg PO DAILY [facility] Last Admin: 11/05/16 11:46 Dose: 81 mg Atorvastatin Calcium (Lipitor -) 80 mg PO HS [facility] Last Admin: 11/05/16 21:52 Dose: 80 mg Clopidogrel Bisulfate (Plavix -) 75 mg PO DAILY [facility] Last Admin: 11/05/16 11:46 Dose: 75 mg Enalapril Maleate (Vasotec -) 2.5 mg PO DAILY [facility] Last Admin: 11/05/16 10:06 Dose: 2.5 mg Insulin Detemir (Levemir Vial) 50 units SQ BID [facility] Last Admin: 11/05/16 21:52 Dose: 50 units Metoprolol Succinate 50 mg/ (Metoprolol Succinate 25 mg) 75 mg PO DAILY [facility] Last Admin: 11/05/16 10:06 Dose: 75 mg - Objective Vital Signs: Vital Signs Temperature 98.8 F 11/06/16 09:55 Pulse Rate 71 11/06/16 10:30 Respiratory Rate 18 11/06/16 10:30 Blood Pressure 172/85 11/06/16 10:30 O2 Sat by Pulse Oximetry (%) 100 11/06/16 05:00 Constitutional: Yes: No Distress, Calm, Obese Eyes: Yes: WNL, Conjunctiva Clear, EOM Intact, PERRL HENT: Yes: WNL, Atraumatic, Normocephalic Neck: Yes: WNL, Supple, Trachea Midline Cardiovascular: Yes: Regular Rate and Rhythm, S1, S2. No: Bradycardia, Tachycardia, Pulse Irregular, Bruit, JVD, Gallop, Murmur, Rub, S3, S4, Varicosities Respiratory: Yes: Regular, Diminished, Rales. No: Rhonchi, Wheezes Gastrointestinal: Yes: WNL, Normal Bowel Sounds, Soft. No: Distention, Tenderness Musculoskeletal: Yes: WNL Extremities: Yes: WNL Edema: Yes Edema: LLE: Trace, RLE: Trace Peripheral Pulses WNL: Yes Peripheral Pulses: Left Doralis Pedis: 2+, Right Dorsalis Pedis: 2+ Integumentary: Yes: WNL Neurological: Yes: Alert, Oriented Psychiatric: Yes: Alert, Oriented Labs: CBC, BMP 11/06/16 10:00 INR, PTT INR 1.80 (0.82-1.09) H D 11/04/16 13:00 - ....Imaging Chest X-ray: Report Reviewed, Image Reviewed EKG: Report Reviewed, Image Reviewed Other: Report Reviewed, Image Reviewed (tele reviewed-no sig arrhythmias) Assessment/Plan IMP: 1.Ischemic CM s/p CABG, recent CAROLYNN [place] LAD and SVG to LAD -totally occluded SVG to LCX; totally occluded [place] RCA 2. Recent ICD upgrade to dual chamber device 3. PAF 4. History of bradycardia induced VT 5. ESRD on HD 6. Anemia Admitted with chest pain during HD REC: 1. monitor H/H and transfuse as needed 2.echo reviewed no pericardial effusion, moderately reduced LV function, severe MR/TR 3. cont tele for now attempt to Avoid hypotension during HD as hypotensive episodes could precipitate angina with his extent of underlying CAD. Cardiac enzymes wnl No sig arrhythmias on tele
--- NOTE | 2016-11-06 10:47 | PN ---
Progress Note (short form) - Note Progress Note: Renal Follow up for ESRD on HD Pt seen and examined during dialysis BP 147/89, AVF with good flow pt denies any chest pain presently UF goal is 2L Vital Signs Temperature 98.8 F 11/06/16 09:55 Pulse Rate 71 11/06/16 10:30 Respiratory Rate 18 11/06/16 10:30 Blood Pressure 172/85 11/06/16 10:30 O2 Sat by Pulse Oximetry (%) 100 11/06/16 05:00 Intake & Output 11/03/16 11/04/16 11/05/16 11/06/16 23:59 23:59 23:59 23:59 Intake Total 660 640 130 Output Total 100 200 Balance 660 540 -70 Weight 250 lb Gen: NAD, awake and alert HEENT: NC/AT, MMM, No JVD CVS: RRR, No M/R lungss: CTA Abd: soft NT/ND Ext: No edema, clubbing or cyanosis Neuro: AAOX3, no focal defects CBC, BMP 11/06/16 10:00 Current Medications Apixaban (Eliquis -) 5 mg PO BID [facility] Last Admin: 11/05/16 21:52 Dose: 5 mg Aspirin (Asa -) 81 mg PO DAILY [facility] Last Admin: 11/05/16 11:46 Dose: 81 mg Atorvastatin Calcium (Lipitor -) 80 mg PO HS [facility] Last Admin: 11/05/16 21:52 Dose: 80 mg Clopidogrel Bisulfate (Plavix -) 75 mg PO DAILY [facility] Last Admin: 11/05/16 11:46 Dose: 75 mg Enalapril Maleate (Vasotec -) 2.5 mg PO DAILY [facility] Last Admin: 11/05/16 10:06 Dose: 2.5 mg Insulin Detemir (Levemir Vial) 50 units SQ BID [facility] Last Admin: 11/05/16 21:52 Dose: 50 units Metoprolol Succinate 50 mg/ (Metoprolol Succinate 25 mg) 75 mg PO DAILY [facility] Last Admin: 11/05/16 10:06 Dose: 75 mg A/p 70 year old Gentleman with PMhx of ESRD no HD (TTS), CAD s/p CABG who presents with chest pain with dialysis that has been worsening over the last several weeks. #ESRD on HD PT tolerating dialysis well today AVF functioning well Goal Uf is 2L pt denies any chest pain #Chest pain/r/o ACS Cardiac enzymes negative on Tele No chest pain during dialysis so far today #Anemia Pt is Jehov[employer] witness and does not want blood tranfusion will give IV iron with HD s/p long acting MACKENZIE in outpatient dialysis on Thursday Thank you Dario Jensen DO
[2016-11-06 11:06] LABS: ALBUMIN 3.2 g/dl (3.4-5.0); BILIRUBIN,TOTAL 0.6 mg/dL (0.2-1.0); CALCIUM 8.3 mg/dL (8.5-10.1); TOT PROT 6.4 g/dl (6.4-8.2)
[2016-11-06] MEDS: ATORVASTATIN CA 80 MG TABLET (FP) PO SCH (21:49)
--- NOTE | 2016-11-06 23:12 | PN ---
Progress Note, Physician - Current Medication List Current Medications: Active Medications Apixaban (Eliquis -) 5 mg PO BID [facility] Last Admin: 11/06/16 21:49 Dose: 5 mg Aspirin (Asa -) 81 mg PO DAILY [facility] Last Admin: 11/06/16 14:43 Dose: 81 mg Atorvastatin Calcium (Lipitor -) 80 mg PO HS [facility] Last Admin: 11/06/16 21:49 Dose: 80 mg Clopidogrel Bisulfate (Plavix -) 75 mg PO DAILY [facility] Last Admin: 11/06/16 14:44 Dose: 75 mg Enalapril Maleate (Vasotec -) 2.5 mg PO DAILY [facility] Last Admin: 11/06/16 14:46 Dose: 2.5 mg Insulin Detemir (Levemir Vial) 50 units SQ BID [facility] Last Admin: 11/06/16 21:49 Dose: 50 units Metoprolol Succinate 50 mg/ (Metoprolol Succinate 25 mg) 75 mg PO DAILY [facility] Last Admin: 11/06/16 14:45 Dose: 75 mg - Objective Vital Signs: Vital Signs Temperature 98.8 F 11/06/16 09:55 Pulse Rate 72 11/06/16 17:10 Respiratory Rate 18 11/06/16 17:10 Blood Pressure 115/64 11/06/16 17:10 O2 Sat by Pulse Oximetry (%) 100 11/06/16 09:00 Labs: CBC, BMP 11/06/16 10:00 11/06/16 10:00 INR, PTT INR 1.80 (0.82-1.09) H D 11/04/16 13:00 Problem List - Problems (1) Chest pain Code(s): R07.9 - CHEST PAIN, UNSPECIFIED Qualifiers: Chest pain type: unspecified Qualified Code(s): R07.9 - Chest pain, unspecified (2) Anemia in ESRD (end-stage renal disease) Code(s): N18.6 - END STAGE RENAL DISEASE D63.1 - ANEMIA IN CHRONIC KIDNEY DISEASE (3) CKD (chronic kidney disease) stage V requiring chronic dialysis Code(s): N18.6 - END STAGE RENAL DISEASE Z99.2 - DEPENDENCE ON RENAL DIALYSIS (4) CHF (congestive heart failure) Code(s): I50.9 - HEART FAILURE, UNSPECIFIED
[2016-11-07] MEDS ORDERED: METOPROLOL SUCCINATE 50 MG TAB.SR.24H (FP) ONE (09:08)
[2016-11-07] MEDS ORDERED: METOPROLOL SUCCINATE 25 MG TAB.SR.24H (FP) ONE (09:08)
[2016-11-07] MEDS: ENALAPRIL MALEATE 2.5 MG TABLET (FP) PO SCH (09:37)
[2016-11-07] MEDS: INSULIN DETEMIR 100 UNITS/ML MDV SQ SCH (09:38)
[2016-11-07] MEDS: CLOPIDOGREL BISULFATE 75 MG TABLET (FP) PO SCH (09:38)
[2016-11-07] MEDS: ASPIRIN 81 MG CHEWABLE TABLETS PO SCH (09:38)
[2016-11-07] MEDS: METOPROLOL SUCCINATE 50 MG, METOPROLOL SUCCINATE 25 MG PO SCH (09:38)
[2016-11-07] MEDS: APIXABAN 5 MG TABLET PO SCH (09:38)
--- NOTE | 2016-11-07 09:59 | PN ---
Progress Note, Physician History of Present Illness: seen and examined today in [facility]. no overnight events. no new complaints. - Current Medication List Current Medications: Active Medications Apixaban (Eliquis -) 5 mg PO BID [facility] Last Admin: 11/07/16 09:38 Dose: 5 mg Aspirin (Asa -) 81 mg PO DAILY [facility] Last Admin: 11/07/16 09:38 Dose: 81 mg Atorvastatin Calcium (Lipitor -) 80 mg PO HS [facility] Last Admin: 11/06/16 21:49 Dose: 80 mg Clopidogrel Bisulfate (Plavix -) 75 mg PO DAILY [facility] Last Admin: 11/07/16 09:38 Dose: 75 mg Enalapril Maleate (Vasotec -) 2.5 mg PO DAILY [facility] Last Admin: 11/07/16 09:37 Dose: 2.5 mg Insulin Detemir (Levemir Vial) 50 units SQ BID [facility] Last Admin: 11/07/16 09:38 Dose: 50 units Metoprolol Succinate 50 mg/ (Metoprolol Succinate 25 mg) 75 mg PO DAILY [facility] Last Admin: 11/07/16 09:38 Dose: 75 mg - Objective Vital Signs: Vital Signs Temperature 98.8 F 11/07/16 06:00 Pulse Rate 70 11/07/16 06:00 Respiratory Rate 20 11/07/16 06:00 Blood Pressure 126/70 11/07/16 06:00 O2 Sat by Pulse Oximetry (%) 97 11/07/16 06:00 Constitutional: Yes: No Distress, Calm, Obese Eyes: Yes: WNL, Conjunctiva Clear, EOM Intact HENT: Yes: WNL, Atraumatic, Normocephalic Neck: Yes: WNL, Supple, Trachea Midline Cardiovascular: Yes: Regular Rate and Rhythm, Murmur, S1, S2. No: Bradycardia, Tachycardia, Pulse Irregular, Bruit, JVD, Gallop, Rub, S3, S4, Varicosities Respiratory: Yes: Regular, Diminished. No: Rales, Rhonchi, Wheezes Gastrointestinal: Yes: WNL, Normal Bowel Sounds, Soft. No: Distention, Tenderness Musculoskeletal: Yes: WNL Extremities: Yes: WNL Edema: No Peripheral Pulses WNL: Yes Peripheral Pulses: Left Doralis Pedis: 2+, Right Dorsalis Pedis: 2+ Integumentary: Yes: WNL Neurological: Yes: Alert, Oriented Psychiatric: Yes: Alert, Oriented Labs: CBC, BMP 11/06/16 10:00 11/06/16 10:00 INR, PTT INR 1.80 (0.82-1.09) H D 11/04/16 13:00 - ....Imaging Chest X-ray: Report Reviewed, Image Reviewed EKG: Report Reviewed, Image Reviewed Other: Report Reviewed, Image Reviewed (tele-AV paced, pvcs) Problem List - Problems (1) Chest pain Code(s): R07.9 - CHEST PAIN, UNSPECIFIED Qualifiers: Chest pain type: unspecified Qualified Code(s): R07.9 - Chest pain, unspecified (2) Anemia in ESRD (end-stage renal disease) Code(s): N18.6 - END STAGE RENAL DISEASE D63.1 - ANEMIA IN CHRONIC KIDNEY DISEASE (3) Atrial fibrillation with slow ventricular response Code(s): I48.91 - UNSPECIFIED ATRIAL FIBRILLATION (4) CHF (congestive heart failure) Code(s): I50.9 - HEART FAILURE, UNSPECIFIED (5) End stage renal disease Code(s): N18.6 - END STAGE RENAL DISEASE (6) PVC (premature ventricular contraction) Code(s): I49.3 - VENTRICULAR PREMATURE DEPOLARIZATION (7) V tach Code(s): I47.2 - VENTRICULAR TACHYCARDIA Assessment/Plan IMP: 1.Ischemic CM s/p CABG, recent CAROLYNN [place] LAD and SVG to LAD -totally occluded SVG to LCX; totally occluded [place] RCA 2. Recent ICD upgrade to dual chamber device 3. PAF 4. History of bradycardia induced VT 5. ESRD on HD 6. Anemia Admitted with chest pain during HD REC: monitor H/H and transfuse as needed echo reviewed no pericardial effusion, moderately reduced LV function, severe MR /TR attempt to Avoid hypotension during HD as hypotensive episodes could precipitate angina with his extent of underlying CAD. Cardiac enzymes wnl No sig arrhythmias on tele, ok to dc tele Ok from a cardiac standpoint for discharge home with close outpatient follow up Cont current medical regimen including asa, plavix, eliquis
[2016-11-07 13:46] VITALS: BP 117/62; PULSE 81; TEMP 98.4
[2016-11-07 14:19] LABS: HEP B SURFACE AB Reactive (.)
--- NOTE | 2016-11-07 16:03 | PN ---
Progress Note (short form) - Note Progress Note: Renal Follow up for ESRD on HD Pt seen and examined at the bedside no acute complaints no chest pain during dialysis feels well Vital Signs Temperature 98.4 F 11/07/16 10:00 Pulse Rate 81 11/07/16 10:00 Respiratory Rate 22 11/07/16 10:00 Blood Pressure 117/62 11/07/16 10:00 O2 Sat by Pulse Oximetry (%) 97 11/07/16 09:00 Intake & Output 11/04/16 11/05/16 11/06/16 11/07/16 23:59 23:59 23:59 23:59 Intake Total 660 640 780 240 Output Total 100 200 250 Balance 660 540 580 -10 Weight 250 lb Gen: NAD, awake and alert HEENT: NC/AT, MMM, No JVD CVS: RRR, No M/R lungss: CTA Abd: soft NT/ND Ext: No edema, clubbing or cyanosis Neuro: AAOX3, no focal defects CBC, BMP 11/06/16 10:00 11/06/16 10:00 A/p 70 year old Gentleman with PMhx of ESRD no HD (TTS), CAD s/p CABG who presents with chest pain with dialysis that has been worsening over the last several weeks. #ESRD on HD s/p dialysis yesterday w/o chest pain no indication for dialysis today next dialysis tomorrow as outpatient #Chest pain/r/o ACS Cardiac enzymes negative on Tele No chest pain during dialysis #Anemia Pt is Jehovah witness and does not want blood tranfusion Venofer loading with dialysis [facility] as per outpatient dialysis unit Thank you Dario Jensen DO
== END 2016-11-07 15:22 | disposition home health service (06) ==
LOC: JER 10:14 → UNDOADMOB 13:22 → JERBED 13:22 → INTOOBSV 13:28 → JERBED 13:28 → UNDOADMOB 13:28 → J4W 17:00 → JERBED 17:00 → J4W 20:09 → JERBED 20:09
PROVIDERS: ADMIT Internal Medicine; ATTEND Internal Medicine
DX: R07.9 Chest pain, unspecified (principal); D63.1 Anemia in chronic kidney disease; I25.10 Atherosclerotic heart disease of native coronary artery without angina pectoris; E11.9 Type 2 diabetes mellitus without complications; G47.39 Other sleep apnea; I48.0 Paroxysmal atrial fibrillation; I25.5 Ischemic cardiomyopathy; E78.5 Hyperlipidemia, unspecified; I47.2 Ventricular tachycardia; I13.2 Hypertensive heart and chronic kidney disease with heart failure and with stage 5 chronic kidney disease, or end stage renal disease; N18.6 End stage renal disease; I50.9 Heart failure, unspecified; Z99.2 Dependence on renal dialysis; Z95.1 Presence of aortocoronary bypass graft
CPT/HCPCS: 36415; 71010-TC; 80053; 82550; 82553; 83735; 83880; 84100; 84484; 85025; 85027; 85610; 86704; 86706; 86708; 86850; 86900; 86901; 87340; 93005; 93010; 93306-TC; 99284-25; G0378; J1756

== ENCOUNTER 2017-02-26 11:31 | Emergency (ER) | payer BC ==
--- NOTE | 2017-02-26 11:39 | PDOC ---
Attending Attestation - Resident Resident Name: ArmentaIvan - ED Attending Attestation I have performed the following: I have examined & evaluated the patient, The case was reviewed & discussed with the resident, I agree w/resident's findings & plan, Exceptions are as noted - HPI HPI: 02/26/17 11:38 The patient is a 71-year-old male, with a significant past medical history of end-stage renal disease (AVF in RUE, HD TTS), on Eliquis and Plavix, who presents with bleeding from his AVF that began during dialysis. EMS documented normotension and applied direct pressure. 02/26/17 11:39 02/26/17 11:40 02/26/17 11:55 - Physicial Exam PE: 02/26/17 11:39 Vitals noted RUE AFF with bruit and thrill, no bleeding when pressure dressing removed 02/26/17 11:51 02/26/17 11:55 - Medical Decision Making 02/26/17 11:51 No active bleeding Will obtain labs Will notify vascular Will observe 02/26/17 12:00 Case discussed between resident and vascular surgery Recommendation is observation, discharge, holding of Eliquis for 24 hours 02/26/17 12:50 There has been no further bleeding, even without direct pressure Labs continue to be pending 02/26/17 13:59 Labs noted There has been no further bleeding He would like to go home They understand the need for close monitoring, and to immediately return if bleeding reoccurs Clinical impression: Bleeding from AV fistula site; resolved I discussed the physical exam findings, ancillary test results and final diagnoses with the patient. I answered all of the patient's questions. The patient was satisfied with the care received and felt comfortable with the discharge plan and treatment plan. The patient will call their primary care physician within 24 hours to arrange follow-up and will return to the Emergency Department with any new, persistent or worsening symptoms. Discharge Disposition - Discharge Dispostion Last Admission D/C Date: 09/19/16 - Diagnosis Bleeding from dialysis shunt - Discharge Dispostion Disposition: HOME Condition at time of disposition: Improved - Referrals Referrals: Oscar Sullivan MD [Primary Care Provider] - - Patient Instructions Printed Discharge Instructions: DI for Arteriovenous Fistula for Dialysis Additional Instructions: If bleeding occurs again, applied direct pressure immediately Do not take your Eliquis tomorrow, then resume it as usual. Return to the emergency department immediately with ANY new, persistent or worsening symptoms. You MUST call and follow up with your doctor tomorrow. Please make sure your doctor reviews the results of your emergency department evaluation.
--- NOTE | 2017-02-26 11:40 | PDOC ---
History of Present Illness - General History Source: Patient Exam Limitations: No Limitations <Ivan Armenta - Last Filed: 02/26/17 12:10> - General History Source: Patient Exam Limitations: No Limitations - History of Present Illness Initial Comments: 02/26/17 12:35 The patient is a 71-year-old man, accompanied by family, with a significant past medical history of hypertension, hypercholesterolemia, diabetes mellitus, end-stage renal disease (on hemodialysis via AVF in the [facility]; on Eliquis and Plavix), myocardial infarction status post cardiac catheterization who presents to the emergency department via EMS for further evaluation of bleeding from his AVF that began after hemodialysis this morning. Patient underwent full hemodialysis without complications. The needle was removed and he was noted to bleed from his AV fistula site. Pressure was immediately applied. EMS was activated and applied direct pressure en route and until ED arrival. Patient denies denies experiencing chest pain, lightheadedness, dizziness, palpitations , cough, shortness of breath, visual changes, weakness and paresthesias sensations to his extremities, abdominal pain, nausea, vomiting. Patient did not take his Eliquis this morning. Allergies: No Known Drug Allergies Past Surgical History: AV Fistula Placement. Cardiac Catheterization Social History: unknown if ever smoked. No EtOH and recreational drug use. Primary Care Physician: Dr. Oscar Sullivan Vascular Surgeon: Dr. Chago Wallace <Josephine Cedillo - Last Filed: 02/26/17 12:50> - General Stated Complaint: Dialysis Shunt Problem Time Seen by Provider: 02/26/17 11:38 Past History - Past Medical History Anemia: No Asthma: No Cancer: No Cardiac Disorders: Yes (SD) CVA: No COPD: No CHF: No Dementia: No Diabetes: Yes Dialysis: Yes (T,,SA) GI Disorders: No Disorders: No HTN: Yes Hypercholesterolemia: Yes Liver Disease: No Seizures: No Thyroid Disease: No - Surgical History Abdominal Surgery: No Appendectomy: No Cardiac Surgery: Yes (STENT) Cholecystectomy: No Lung Surgery: No Neurologic Surgery: No Orthopedic Surgery: No - Immunization History Immunization Up to Date: No - Psycho/Social/Smoking Cessation Hx Anxiety: No Suicidal Ideation: No Smoking History: Unknown if ever smoked Have you smoked in the past 12 months: No Hx Alcohol Use: No Drug/Substance Use Hx: No Substance Use Type: None Hx Substance Use Treatment: No <Ivan Armenta - Last Filed: 02/26/17 12:10> <Mamadou - Last Filed: 02/26/17 12:50> - Past Medical History Allergies/Adverse Reactions: Allergies Allergy/AdvReac Type Severity Reaction Status Date / Time No Known Drug Allergies Allergy Verified 02/26/17 11:43 Home Medications: Ambulatory Orders Clopidogrel Bisulfate [Plavix -] 75 mg PO DAILY 11/04/16 Metoprolol Succinate [Toprol Xl] 25 mg PO BID 11/04/16 Apixaban [Eliquis -] 5 mg PO BID tablet 11/07/16 Aspirin [ASA -] 81 mg PO DAILY #30 tab.chew 11/07/16 Atorvastatin Ca [Lipitor] 80 mg PO HS tablet 11/07/16 Enalapril Maleate [Vasotec -] 2.5 mg PO DAILY tablet 11/07/16 Amiodarone HCl 200 mg PO BID 02/26/17 Insulin (Levemir) [Levemir Vial] 40 units SQ BID 02/26/17 Review of Systems - Review of Systems Comments:: 02/26/17 12:48 CONSTITUTIONAL: Absent: fever, chills, diaphoresis, generalized weakness, malaise, loss of appetite HEENT: Absent: rhinorrhea, nasal congestion, throat pain, throat swelling, difficulty swallowing, mouth swelling, ear pain, eye pain, visual Changes CARDIOVASCULAR: Absent: chest pain, syncope, palpitations, irregular heart rate , lightheadedness, peripheral edema RESPIRATORY: Absent: cough, shortness of breath, dyspnea with exertion, orthopnea, wheezing, stridor, hemoptysis GASTROINTESTINAL:Absent: abdominal pain, abdominal distension, nausea, vomiting , diarrhea, constipation, melena, hematochezia GENITOURINARY: Absent: dysuria, frequency, urgency, hesitancy, hematuria, flank pain, genital pain MUSCULOSKELETAL: Absent: myalgia, arthralgia, joint swelling SKIN: Absent: rash, itching, pallor HEMATOLOGIC/IMMUNOLOGIC: Present: Bleeding from AV Fistula site. Absent: easy bruising, lymphadenopathy, frequent infections ENDOCRINE:Absent: unexplained weight gain, unexplained weight loss, heat intolerance, cold intolerance NEUROLOGIC: Absent: headache, focal weakness or paresthesias, dizziness, unsteady gait, seizure, mental status changes, bladder or bowel incontinence PSYCHIATRIC: Absent: anxiety, depression, suicidal or homicidal ideation, hallucinations <Josephine Cedillo - Last Filed: 02/26/17 12:50> *Physical Exam - Physical Exam Comments: GENERAL: Well-appearing, well-nourished. No apparent distress. HEENT: Normocephalic, atraumatic. PERRL, EOM intact. CARDIOVASCULAR: Normal S1, S2. DIstant heart sounds. PULMONARY: Clear to auscultation bilaterally. ABDOMEN: Soft, non-distended, non-tender. EXTREMITIES: +RUE fistula with thrill present. Not actively bleeding at this time. 2+pitting edema b/l LE <Ivan Armenta - Last Filed: 02/26/17 12:10> - Vital Signs Last Vital Signs Temp Pulse Resp BP Pulse Ox 97.7 F 71 18 129/72 100 02/26/17 11:43 02/26/17 11:43 02/26/17 11:43 02/26/17 11:43 02/26/17 11:43 <Josephine Cedillo - Last Filed: 02/26/17 12:50> Medical Decision Making - Medical Decision Making 02/26/17 11:54 Will order CBCD, CMP, pt/INR, type and screen. Pt is not actively bleeding at site of fistula at this time. 02/26/17 11:[address] Wallace. As pt is on eliquis and plavix, will require monitoring in the ER at this time and to check labs. As bleeding has stopped, Dr. Wallace recommends seeing pt in his office tomorrow and to hold eliquis until he sees Dr. Wallace. <Ivan Armenta - Last Filed: 02/26/17 12:10> *DC/Admit/Observation/Transfer <Ivan Armenta - Last Filed: 02/26/17 12:10> - Attestations Scribe Attestion: 02/26/17 12:50 Documentation prepared by Josephine Cedillo, acting as faculty i on call medical assistant for Jeffery Mcelroy MD. <Josephine Cedillo - Last Filed: 02/26/17 12:50> Diagnosis at time of Disposition: Bleeding from dialysis shunt - Discharge Dispostion Condition at time of disposition: Improved - Referrals Referrals: Oscar Sullivan MD [Primary Care Provider] - - Patient Instructions Printed Discharge Instructions: DI for Arteriovenous Fistula for Dialysis Additional Instructions: If bleeding occurs again, applied direct pressure immediately Do not take your Eliquis tomorrow, then resume it as usual. Return to the emergency department immediately with ANY new, persistent or worsening symptoms. You MUST call and follow up with your doctor tomorrow. Please make sure your doctor reviews the results of your emergency department evaluation.
[2017-02-26 11:45] VITALS: TEMP 97.7; BMI 32.8
[2017-02-26 13:18] LABS: BASOPHIL 0.7 % (0-2.0); EOSINOPHIL 1.1 % (0-4.5); MCH 32.1 pg (25.7-33.7); MCHC 32.9 g/dl (32.0-35.9); MEAN CELL VOLUME 97.5 fl (80-96); MEAN PLT VOLUME 9.7 fl (7.5-11.1); NEUTROPHILS 78.9 % (42.8-82.8); PLATELET COUNT 73 K/MM3 (134-434); RDW 23.1 % (11.9-15.9); WHITE BLOOD COUNT 5.9 K/mm3 (4.0-10.0)
[2017-02-26 13:45] LABS: ALBUMIN 3.3 g/dl (3.4-5.0); BILIRUBIN,TOTAL 0.8 mg/dL (0.2-1.0); CALCIUM 7.9 mg/dL (8.5-10.1); COCKROFT - GAULT 17.48; CREATININE 6.1 mg/dL (0.7-1.3); TOT PROT 6.9 g/dl (6.4-8.2)
[2017-02-26 14:05] LABS: INR 1.73 (0.82-1.09); PROTHROMBIN TIME (PATIENT) 19.2 SEC (9.98-11.88)
[2017-02-26 14:06] VITALS: BP 124/67; PULSE 70
== END 2017-02-26 14:11 | disposition home or self-care (01) ==
LOC: JER 11:31
DX: T82.838A Hemorrhage due to vascular prosthetic devices, implants and grafts, initial encounter (principal); Y84.1 Kidney dialysis as the cause of abnormal reaction of the patient, or of later complication, without mention of misadventure at the time of the procedure; Y92.538 Other ambulatory health services establishments as the place of occurrence of the external cause; I12.0 Hypertensive chronic kidney disease with stage 5 chronic kidney disease or end stage renal disease; E11.22 Type 2 diabetes mellitus with diabetic chronic kidney disease; N18.6 End stage renal disease; N17.8 Other acute kidney failure; Z99.2 Dependence on renal dialysis; Z79.4 Long term (current) use of insulin; E78.00 Pure hypercholesterolemia, unspecified; I25.2 Old myocardial infarction; Z95.5 Presence of coronary angioplasty implant and graft; Z79.01 Long term (current) use of anticoagulants
CPT/HCPCS: 36415; 80053; 85025; 85610; 85730; 86850; 86900; 86901; 99282-25